=== PATIENT | female | born 2000 | race Caucasian/White ===

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

== ENCOUNTER 2020-02-24 12:44 | Emergency (ER) | payer MEDICAID, OTHER ==
[~2020-02-24] VITALS: Ht 162.6 cm; Wt 59.5 kg
[~2020-02-24 12:44] MED LIST changes: +PRENTAB9 PO
[2020-02-24 15:46] VITALS: BP 138/67
== END 2020-02-24 15:48 | disposition home or self-care (01) ==
LOC: M ED 12:44
DX: F53.0 Postpartum depression (principal); Z91.5 Personal history of self-harm; Z91.018 Allergy to other foods; Z91.040 Latex allergy status

== ENCOUNTER 2020-11-24 22:51 | Inpatient (IN) | payer OTHER ==
[~2020-11-24] VITALS: Ht 162.6 cm; Wt 48.7 kg
[~2020-11-24 22:51] MED LIST changes: -ESCI20TA PO; +ESCI20TA16 PO
--- OUTSIDE RECORDS SUMMARY | 2020-11-24 22:56 | CCD ---
Author Author [facility] Organization [facility] Address Unknown Phone Unavailable Care Team Providers Care Hogshead Weigher Name Role Phone Danita Stafford STAGE BUILDER Unavailable Unavailable LETTIERE, Kale LINDER Unavailable Unavailable LETTIERE, Kale LINDER Unavailable Unavailable LETTIERE, Kale LINDER Unavailable Unavailable LETTIERE, Kale LINDER Unavailable Unavailable LETTIERE, Kale LINDER Unavailable Unavailable LETTIERE, Kale LINDER Unavailable Unavailable LETTIERE, Kale LINDER Unavailable Unavailable LETTIERE, Kale LINDER Unavailable Unavailable LETTIERE, Kale LINDER Unavailable Unavailable LETTIERE, Kale LINDER Unavailable Unavailable LETTIERE, Kale LINDER Unavailable Unavailable LETTIERE, A CHARMAINE PA Unavailable Unavailable LETTIERE, A CHARMAINE PA Unavailable Unavailable LETTIERE, A CHARMAINE PA Unavailable Unavailable LETTIERE, A CHARMAINE PA Unavailable Unavailable LETTIERE, A CHARMAINE PA Unavailable Unavailable LETTIERE, A CHARMAINE PA Unavailable Unavailable LETTIERE, A CHARMAINE PA Unavailable Unavailable LETTIERE, A CHARMAINE PA Unavailable Unavailable LETTIERE, A CHARMAINE PA Unavailable Unavailable LETTIERE, A CHARMAINE PA Unavailable Unavailable LETTIERE, A CHARMAINE PA Unavailable Unavailable LETTIERE, A CHARMAINE PA Unavailable Unavailable LETTIERE, A CHARMAINE PA Unavailable Unavailable LETTIERE, A CHARMAINE PA Unavailable Unavailable LETTIERE, A CHARMAINE PA Unavailable Unavailable LETTIERE, A CHARMAINE PA Unavailable Unavailable LETTIERE, A CHARMAINE PA Unavailable Unavailable LETTIERE, A CHARMAINE PA Unavailable Unavailable Re-disclosure Warning The records that you are about to access may contain information from federally-assisted alcohol or drug abuse programs. If such information is present, then the following federally mandated warning applies: This information has been disclosed to you from records protected by federal confidentiality rules (42 CFR part 2). The federal rules prohibit you from making any further disclosure of this information unless further disclosure is expressly permitted by the written consent of the person to whom it pertains or as otherwise permitted by 42 CFR part 2. A general authorization for the release of medical or other information is NOT sufficient for this purpose. The Federal rules restrict any use of the information to criminally investigate or prosecute any alcohol or drug abuse patient.The records that you are about to access may contain highly sensitive health information, the redisclosure of which is protected by Article 27-F of the [facility] Public Health law. If you continue you may have access to information: Regarding HIV / AIDS; Provided by facilities licensed or operated by the [facility] Office of Mental Health; or Provided by the [facility] Office for People With Developmental Disabilities. If such information is present, then the following [facility] mandated warning applies: This information has been disclosed to you from confidential records which are protected by state law. State law prohibits you from making any further disclosure of this information without the specific written consent of the person to whom it pertains, or as otherwise permitted by law. Any unauthorized further disclosure in violation of state law may result in a fine or care home sentence or both. A general authorization for the release of medical or other information is NOT sufficient authorization for further disc losure. Family History Family Member Name Family Member Gender Family Member Status Date o f Status Description Data Source(s) Unknown Unknown Problem [facility] ([facility]) Encounters Encounter Providers Location Date Indications Data Source(s ) Outpatient Attender: CHARMAINE Kidd Andrea Deleon donato 07/25/2020 03:50:00 PM EDT [facility] ([facility]) Outpatient Attender: KRISTIAN Stafford STAGE BUILDER FP 03/21/2020 07:26:15 P M EDT [facility] Outpatient Attender: KRISTIAN PHILLIPSP FP 12/21/2019 09:01:01 P M EDT [facility] Insurance Providers Payer name Policy type / Coverage type Policy ID Covered green party ID Covered green party's relationship to gallo Policy Gallo Plan Information [facility] [id number] SP [id number] Managed Care [facility] Community Plan P [id number] S [id number] Medicaid S [id number] S [id number] [facility] [id number] SP [id number] UN COMMUNITY PLAN [facility] [id number] SP [id number] [facility] [id number] SP [id number] Managed Care - Community Plan [facility] P [id number] S [id number] Managed Care - Community Plan [facility] P [id number] S [id number] Medicaid S [id number] S [id number] [facility] Health Maintenance Organization (O) [id number] Self [id number] UN COMMUNITY PLAN [facility] [id number] SP [id number] [facility] Health Maintenance Organization (HMO) [id number] Self [id number] Managed Care - Community Plan [facility] P [id number] S [id number] [employer] [id number] SP [id number] [employer] O [id number] S [id number] [facility]CA[facility]) O [id number] S [id number] [facility] O [id number] S [id number] DK [id number] [id number] [id number] MEDICAID M [id number] Self [id number] [facility] I [id number] Self [id number] Managed Care - Community Plan [facility] P [id number] S [id number] Medicaid S [id number] S [id number] UNHC COMMUNITY PLAN [facility] [id number] SP [id number] D Managed Care [facility] P [id number] S [id number] Medicaid Dental S [id number] S [id number] Self Pay O [id number] O [id number] D Managed Care [facility] P UNAVAILABLE S UNAVAILABLE [employer] CHP O [id number] S [id number] D [facility] O [id number] S [id number] Vital Signs ID Date Data Source UNK Name Value Range Interpretation Code Description Data Source(s) Body mass index (BMI) [Ratio] 19.9 kg/m2 19.9 k g/m2 [facility] ([facility], [facility]) Body height 64 [in_i] 64 [in_i] [facility]) 5'4" Body weight 116.00 [lb_av] 116.00 [lb_av] MEDEN T ([facility], [facility]) Body temperature 97.9 [degF] 97.9 [degF] [facility], [facility]) Oxygen saturation in Arterial blood by Pulse oximetry 98 % 98 % [facility] ([facility], [facility]) Respiratory rate 14 /min 14 /min [facility] ( [facility], [facility]) Heart rate 82 /min 82 /min [facility] ([facility], [facility]) Diastolic blood pressure 76 mm[Hg] 76 mm[Hg] [facility], [facility]) Systolic blood pressure 117 mm[Hg] 117 mm[Hg] [facility], [facility])
[2020-11-24] MEDS ORDERED: WELLTAB38 PO (23:05)
[2020-11-24] MEDS: NS 1,000 ML IV SCH (23:59)
[2020-11-25] MEDS ORDERED: CHARCOAL ACTIVATED LIQUID 25 GM/120 ML BTL PO ONE (00:15)
[2020-11-25 00:29] LABS: BASO % 0.5 % (0.0-1.0); EOS # 0.3 10^3/uL (0.0-0.5); EOS % 3.9 % (0.0-3.0); HEMATOCRIT 44.4 % (36.0-47.0); HEMOGLOBIN 14.3 g/dl (12.0-15.5); LYMPH # 2.6 10^3/uL (1.5-5.0); LYMPH % 34.7 % (24.0-44.0); MEAN CORPUSCULAR HEMOGLOBIN 29.2 pg (27.0-33.0); MEAN CORPUSCULAR HGB CONC 32.2 g/dl (32.0-36.5); MEAN CORPUSCULAR VOLUME 90.8 fl (80.0-96.0); MONO # 0.6 10^3/uL (0.0-0.8); MONO % 7.5 % (2.0-8.0); NEUTROPHILS # 3.9 10^3/uL (1.5-8.5); NEUTROPHILS % 52.9 % (36.0-66.0); PLATELET COUNT, AUTOMATED 284 10^3/uL (150-450); RED BLOOD COUNT 4.89 10^6/uL (4.00-5.40); WHITE BLOOD COUNT 7.4 10^3/uL (4.0-10.0)
[2020-11-25 00:32] LABS: ACETAMINOPHEN LEVEL < 2.0 UG/ML (10.0-30.0); ALBUMIN 3.9 GM/DL (3.2-5.2); ALT/SGPT 17 U/L (12-78); AMPHETAMINES LEVEL URINE NEGATIVE (NEGATIVE); BARBITURATES URINE NEGATIVE (NEGATIVE); BENZODIAZEPINES URINE NEGATIVE (NEGATIVE); BILIRUBIN,DIRECT < 0.1 MG/DL (0.0-0.2); BILIRUBIN,TOTAL 0.2 MG/DL (0.2-1.0); BLOOD UREA NITROGEN 16 MG/DL (7-18); CALCIUM LEVEL 9.4 MG/DL (8.5-10.1); CANNABINOIDS URINE NEGATIVE (NEGATIVE); CARBON DIOXIDE LEVEL 28 MEQ/L (21-32); CHLORIDE LEVEL 105 MEQ/L (98-107); COCAINE METABOLITE URINE NEGATIVE (NEGATIVE); CPK CREATINE PHOSPHOKINASE 27 U/L (26-192); CREATININE FOR GFR 0.96 MG/DL (0.55-1.30); ETHYL ALCOHOL (ETHANOL) < 0.003 % (0.000-0.010); GLUCOSE, FASTING 112 MG/DL (70-100); METHADONE URINE NEGATIVE (NEGATIVE); OPIATES URINE NEGATIVE (NEGATIVE); PHENCYCLIDINE URINE NEGATIVE (NEGATIVE); POTASSIUM SERUM 4.6 MEQ/L (3.5-5.1); SALICYLATE LEVEL < 1.7 MG/DL (5.0-30.0); SODIUM LEVEL 140 MEQ/L (136-145); TOTAL PROTEIN 7.4 GM/DL (6.4-8.2)
[2020-11-25 00:43] LABS: HCG, SERUM QUALITATIVE NEGATIVE (NEGATIVE)
[2020-11-25 00:54] LABS: RSV AMPLIFICATION NEGATIVE (NEGATIVE)
--- OUTSIDE RECORDS SUMMARY | 2020-11-25 01:11 | CCD ---
Author Author [facility] Organization [facility] Address Unknown Phone Unavailable Care Team Providers Care Marketing Secretary Name Role Phone Danita Stafford Unavailable Unavailable LETTIERE, Kale LINDER Unavailable Unavailable [...] A CHARMAINE PA Unavailable Unavailable LETTIERE, A CHARMIANE PA Unavailable Unavailable LETTIERE, A CHARMAINE PA [...] is protected by Article 27-F of the [facility] Public Health law. If you continue you may have access to information: Regarding HIV / AIDS; Provided by facilities licensed or operated by the [facility] Office of Mental Health; or Provided by the [facility] Office for People With Developmental Disabilities. If such information is present, then the following [facility] mandated warning applies: This information has been [...] law may result in a fine or intermediate sentence or both. A general authorization for the release of medical or other information is NOT sufficient authorization for further disc losure. Family History Family Member Name Family Member Gender Family Member Status Date o f Status Description Data Source(s) Unknown Unknown Problem [facility] ([facility]) Encounters Encounter Providers Location Date Indications Data Source(s ) Outpatient Attender: CHARMAINE yepezy 07/25/2020 03:50:00 PM EDT [facility] ([facility]) Outpatient Attender: KRISTIAN Rivera TEST DRILLER FP 03/21/2020 07:26:15 P M EDT [facility] Outpatient Attender: KRISTIAN Rivera TEST DRILLER FP 12/21/2019 09:01:01 P M EDT [facility] Insurance Providers Payer name Policy type / Coverage type Policy ID Covered republican ID Covered republican's relationship to gallo Policy Gallo Plan Information [facility] [id number] SP [id number] Managed Care [facility] Community Plan P [id number] S [id number] Medicaid S [id number] S [id number] [facility] [id number] SP [id number] [facility] COMMUNITY PLAN [facility] [id number] SP [id number] [facility] [id number] SP [id number] Managed Care - Community Plan [facility] P [id number] S [id number] Managed Care - Community Plan [facility] P [id number] S [id number] Medicaid S [id number] S [id number] [facility]/Community [facility] Health Maintenance Organization ([facility]) [id number] Self [id number] [facility] COMMUNITY PLAN [facility] [id number] SP [id number] [facility] Health Maintenance Organization (HMO) [id number] Self [id number] Managed Care - Community Plan [facility] P [id number] S [id number] [employer] [id number] SP [id number] [employer] O [id number] S [id number] [facility]CAID) O [id number] S [id number] [facility] O [id number] S [id number] DK JEFFY [id number] MO2 [id number] MEDICAID M [id number] Self [id number] [facility] I [id number] Self [id number] Managed Care - Community Plan [facility] P [id number] S [id number] Medicaid S [id number] S [id number] UN COMMUNITY PLAN [facility] [id number] SP [id number] D Managed Care [facility] P [id number] S [id number] Medicaid Dental S [id number] S [id number] Self Pay O [id number] O [id number] D Managed Care [facility] P UNAVAILABLE S UNAVAILABLE [employer] CHP O [id number] S [id number] D [facility] O [id number] S [id number] Vital Signs ID Date Data Source UNK Name Value Range Interpretation Code Description Data Source(s) Body mass index (BMI) [Ratio] 19.9 kg/m2 19.9 k g/m2 [facility], [facility]) Body height 64 [in_i] 64 [in_i] [facility] ([facility], [facility]) 5'4" Body weight 116.00 [lb_av] 116.00 [lb_av] MEDEN T ([facility], [facility]) Body temperature 97.9 [degF] 97.9 [degF] [facility] ([facility], [facility]) Oxygen saturation in Arterial blood by Pulse oximetry 98 % 98 % [facility], [facility]) Respiratory rate 14 /min 14 /min [facility] ( [facility], [facility]) Heart rate 82 /min 82 /min [facility], [facility]) Diastolic blood pressure 76 mm[Hg] 76 mm[Hg] [facility], [facility]) Systolic blood pressure 117 mm[Hg] 117 mm[Hg] [facility] ([facility], [facility])
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
--- OUTSIDE RECORDS SUMMARY | 2020-11-25 04:33 | CCD ---
Author Author [facility] Address Unknown Phone Unavailable Care Team Providers Care Line Servicer Name Role Phone Danita Stafford Unavailable Unavailable [...] is protected by Article 27-F of the [facility] Public Health law. If you continue you may have access to information: Regarding HIV / AIDS; Provided by facilities licensed or operated by the [facility] Office of Mental Health; or Provided by the [facility] Office for People With Developmental Disabilities. If such information is present, then the following [facility] mandated warning applies: This information has been [...] law may result in a fine or mcc sentence or both. A general authorization for [...] CHARMAINE yepezy 07/25/2020 03:50:00 PM EDT [facility] ([facility]) Outpatient Attender: KRISTIAN Rivera RELOCATION DIRECTOR FP 03/21/2020 07:26:15 P M EDT [facility] Outpatient Attender: KRISTIAN Rivera RELOCATION DIRECTOR FP 12/21/2019 09:01:01 P M EDT [facility] Insurance Providers Payer name Policy type / Coverage type Policy ID Covered republican ID Covered republican's relationship to gallo Policy Gallo Plan Information [facility] [id number] SP [id number] Managed Care [facility] Community Plan P [id number] S [id number] Medicaid S [id number] S [id number] [facility] [id number] SP [id number] [facility] COMMUNITY PLAN [facility] [id number] SP [id number] [facility] [id number] SP [id number] Managed Care - Community Plan [facility] P [id number] S [id number] Managed Care - Community Plan [facility] P [id number] S [id number] Medicaid S [id number] S [id number] [facility] Health Maintenance Organization ([facility] [id number] Self [id number] [facility] COMMUNITY PLAN [facility] [id number] SP [id number] [facility] Health Maintenance Organization (HMO) [id number] Self [id number] Managed Care - Community Plan [facility] P [id number] S [id number] [employer] [id number] SP [id number] [employer] O [id number] S [id number] [facility]) O [id number] S [id number] [facility] O [id number] S [id number] JEFFY [id number] [id number] MEDICAID M [id number] Self [id number] [facility] I [id number] Self [id number] Managed Care - Community Plan [facility] P [id number] S [id number] Medicaid S [id number] S [id number] UN COMMUNITY PLAN [facility] [id number] SP [id number] D Managed Care [facility] P [id number] S [id number] Medicaid Dental S [id number] S [id number] Self Pay O [id number] O [id number] D Managed Care [facility] P UNAVAILABLE S UNAVAILABLE [employer] CHP O [id number] S [id number] D [facility] O [id number] S [id number] Vital Signs ID Date Data Source UNK Name Value Range Interpretation Code Description Data Source(s) Body mass index (BMI) [Ratio] 19.9 kg/m2 19.9 k g/m2 [facility] ([facility], [facility]) Body height 64 [in_i] 64 [in_i] [facility] ([facility], [facility]) 5'4" Body weight 116.00 [lb_av] 116.00 [lb_av] [facility] ([facility], [facility]) Body temperature 97.9 [degF] 97.9 [degF] [facility] ([facility], [facility]) Oxygen saturation in Arterial blood by Pulse oximetry 98 % 98 % [facility] ([facility], [facility]) Respiratory rate 14 /min 14 /min [facility] ( [facility], [facility]) Heart rate 82 /min 82 /min [facility] ([facility], [facility]) Diastolic blood pressure 76 mm[Hg] 76 mm[Hg] [facility] ([facility], [facility]) Systolic blood pressure 117 mm[Hg] 117 mm[Hg] [facility] ([facility], [facility])
--- NOTE | 2020-11-25 05:21 | ECGEPIP ---
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
[2020-11-25] MEDS ORDERED: LORazepam 2 MG/ML VIAL As Ordered ONE (07:28)
[2020-11-25 07:41] LABS: HEMATOCRIT 46.2 % (36.0-47.0); HEMOGLOBIN 14.2 g/dl (12.0-15.5); MEAN CORPUSCULAR HEMOGLOBIN 28.9 pg (27.0-33.0); MEAN CORPUSCULAR HGB CONC 30.7 g/dl (32.0-36.5); MEAN CORPUSCULAR VOLUME 94.1 fl (80.0-96.0); PLATELET COUNT, AUTOMATED 323 10^3/uL (150-450); RED BLOOD COUNT 4.91 10^6/uL (4.00-5.40); WHITE BLOOD COUNT 11.6 10^3/uL (4.0-10.0)
--- NOTE | 2020-11-25 07:42 | IPNPDOC ---
Subjective Date Seen The patient was seen on 11/25/20. Subjective Chief Complaint/HPI awake after seizure, confused , post ictal . Objective Physical Examination General Exam: Positive: Alert, Mild Distress, Other (confused, post ictal. ) Eye Exam: Positive: PERRLA, Conjunctiva & lids normal, EOMI; Negative: Sclera icteric Neck Exam: Positive: Supple; Negative: JVD, thyromegaly Chest Exam: Positive: Clear to auscultation; Negative: Rales, Rhonchi, Wheezing Heart Exam: Positive: Tachycardic, Regular Rhythm, Normal S1, Normal S2; Negative: Murmurs, Rubs Abdomen Exam: Positive: Normal bowel sounds, Soft; Negative: Tenderness Extremity Exam: Negative: Clubbing, Cyanosis, Edema Assessment /Plan Assessment Bupropion overdose Patient had a generalized tonic clonic seizure. Seizure lasted about 1 min and 30 secs. SHe became awake after the seizure immediately was was postictal. Was given 2 mg of IV ativan. She was tachy to 155, sinus in rhythm. Poison control was called to monitor on Tele, repeat EKG to QRS. If greater> 120 to called back for further recommendation. Benzos prn. Plan/VTE VTE Prophylaxis Ordered?: Yes VS, I&O, 24H, Fishbone Vital Signs/I&O Vital Signs Date Time Temp Pulse Resp B/P (MAP) Pulse Ox O2 Delivery O2 Flow Rate FiO2 11/25/20 06:35 108/64 (79) 11/25/20 06:22 133 18 96 Room Air 11/24/20 22:52 98.0 Laboratory Data 24H LABS Laboratory Tests 2 11/24/20 23:49: Immature Granulocyte % (Auto) 0.5, Neutrophils (%) (Auto) 52.9, Lymphocytes (%) (Auto) 34.7, Monocytes (%) (Auto) 7.5H, Eosinophils (%) (Auto) 3.9H, Basophils (%) (Auto) 0.5, Neutrophils # (Auto) 3.9, Lymphocytes # (Auto) 2.6, Monocytes # (Auto) 0.6, Eosinophils # (Auto) 0.3, Basophils # (Auto) 0.0, Nucleated Red Blood Cells % (auto) 0.0, Anion Gap 7L, Calcium Level 9.4, Total Bilirubin 0.2, Direct Bilirubin < 0.1, Aspartate Amino Transf (AST/SGOT) 12, Alanine Aminotransferase (ALT/SGPT) 17, Alkaline Phosphatase 98, Total Creatine Kinase 27, Total Protein 7.4, Albumin 3.9, Albumin/Globulin Ratio 1.1L, Thyroid Stimulating Hormone (TSH) 5.980H, Human Chorionic Gonadotropin, Qual NEGATIVE, Salicylates Level < 1.7L, Urine Opiates Screen NEGATIVE, Urine Methadone Screen NEGATIVE, Acetaminophen Level < 2.0L, Urine Barbiturates Screen NEGATIVE, Urine Phencyclidine Screen NEGATIVE, Urine Amphetamines Screen NEGATIVE, Urine Benzodiazepines Screen NEGATIVE, Urine Cocaine Metabolite Screen NEGATIVE, Urine Cannabinoids Screen NEGATIVE, Ethyl Alcohol Level < 0.003 11/24/20 23:50: Coronavirus (COVID-19)(PCR) NEGATIVE, Influenza Type A (RT-PCR) NEGATIVE, Influenza Type B (RT-PCR) NEGATIVE, Respiratory Syncytial Virus (PCR) NEGATIVE 11/24/20 23:59: Bedside Glucose (Misc Panel) 98 11/25/20 07:32: CBC/BMP Laboratory Tests 11/24/20 23:49 DIONE DIETRICH MD Nov 25, 2020 07:42
[2020-11-25 08:25] LABS: BLOOD UREA NITROGEN 9 MG/DL (7-18); CALCIUM LEVEL 8.7 MG/DL (8.5-10.1); CARBON DIOXIDE LEVEL 14 MEQ/L (21-32); CHLORIDE LEVEL 111 MEQ/L (98-107); CREATININE FOR GFR 1.06 MG/DL (0.55-1.30); FREE T3 2.8 PG/ML (2.9-4.5); GLUCOSE, FASTING 142 MG/DL (70-100); MAGNESIUM LEVEL 1.9 MG/DL (1.8-2.4); POTASSIUM SERUM 3.4 MEQ/L (3.5-5.1); SODIUM LEVEL 142 MEQ/L (136-145)
[2020-11-25] MEDS ORDERED: ONDANSETRON 4MG/2ML VIAL IV PRN (09:30)
[2020-11-25] MEDS ORDERED: LORazepam 2 MG/ML VIAL IV PRN (09:30)
[2020-11-25] MEDS: NS 1,000 ML IV SCH (10:20)
--- NOTE | 2020-11-25 11:14 | ECGEPIP ---
[facility] Test Date: 2020-11-25 Pat Name: ANA JEROME Department: Room: 01-03 Gender: Female Jerker: kristen WHITEHEADB: 2000 Requested By: RATNA Baer Order Number: [id number] Reading MD: Lavon Pruitt Measurements Intervals [place] Rate: 136 P: -6 ND: 134 QRS: -18 QRSD: 94 T: 9 QT: 325 QTc: 489 Interpretive Statements SINUS TACHYCARDIA NONSPECIFIC ST & T-WAVE ABNORMALITY Prolonged QTc interval Rate increase and lateral changes new from tracing done 11-24-20 Clinical correlation required Electronically Signed on 11-25-2020 11:13:55 EST by Lavon Pruitt
--- NOTE | 2020-11-25 11:16 | ECGEPIP ---
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
[2020-11-25] MEDS: ENOXAPARIN 30MG/0.3ML SYRINGE (J1650 PER 10MG) SC SCH (13:48)
[2020-11-25 14:30] VITALS: BP 98/59
[2020-11-25 16:00] VITALS: BP 129/60
[2020-11-25 20:00] VITALS: BP 107/57
[2020-11-26] VITALS: BP 101/55
[2020-11-26 04:00] VITALS: BP 97/50
[2020-11-26 05:25] LABS: HEMATOCRIT 38.7 % (36.0-47.0); MEAN CORPUSCULAR HGB CONC 31.5 g/dl (32.0-36.5); MEAN CORPUSCULAR VOLUME 92.1 fl (80.0-96.0); WHITE BLOOD COUNT 7.7 10^3/uL (4.0-10.0)
[2020-11-26 05:35] LABS: HEMOGLOBIN 12.2 g/dl (12.0-15.5); PLATELET COUNT, AUTOMATED 211 10^3/uL (150-450)
[2020-11-26 05:41] LABS: BLOOD UREA NITROGEN 9 MG/DL (7-18); CALCIUM LEVEL 8.6 MG/DL (8.5-10.1); CARBON DIOXIDE LEVEL 24 MEQ/L (21-32); CHLORIDE LEVEL 110 MEQ/L (98-107); CREATININE FOR GFR 0.71 MG/DL (0.55-1.30); GLUCOSE, FASTING 89 MG/DL (70-100); POTASSIUM SERUM 3.9 MEQ/L (3.5-5.1); SODIUM LEVEL 143 MEQ/L (136-145)
[2020-11-26 08:00] VITALS: BP 119/57
[2020-11-26] MEDS: ENOXAPARIN 30MG/0.3ML SYRINGE (J1650 PER 10MG) SC SCH (09:00)
--- NOTE | 2020-11-26 11:19 | IPNPDOC ---
Subjective Date Seen The patient was seen on 11/26/20. Subjective Chief Complaint/HPI No complaints. EKG no prolongation of QRS, no further seizures. Awaiting to be seen by psychiatry. Objective Physical Examination General Exam: Positive: Alert, Cooperative, No Acute Distress Eye Exam: Positive: PERRLA, Conjunctiva & lids normal, EOMI; Negative: Sclera icteric ENT Exam: Positive: Atraumatic, Mucous membr. moist/pink, Pharynx Normal Neck Exam: Positive: Supple; Negative: JVD, thyromegaly Chest Exam: Positive: Clear to auscultation; Negative: Rales, Rhonchi, Wheezing Heart Exam: Positive: Rate Normal, Regular Rhythm, Normal S1, Normal S2; Negative: Murmurs, Rubs Abdomen Exam: Positive: Normal bowel sounds, Soft; Negative: Tenderness Extremity Exam: Negative: Clubbing, Cyanosis, Edema Neuro Exam: Positive: Normal Speech, Strength at 5/5 X4 ext, Normal Tone Psych Exam: Positive: Memory Intact, Oriented x 3 Assessment /Plan Assessment Mrs. Gorman is a 20 year old female with anxiety, depression, and suicide attempt in December 2016 ([facility]) who presents with bupropion overdose. She recently gave a year ago, and she has a lot of stress ans was depressed. About a month ago, she was started on bupropion. She overdosed on 10 to 15 pills of 150mg bupropion. Had charcoal int eh ED. She had a seizure af ter admission. On cardiac arrhythmias. Suicidal attempt by Overdose Has prior h/o suicidal attempt in 2017 One on one observation. Now medically cleared will consult Psychiatry. Bupropion overdose Had a tonic clonic seizure after the overdose, No QRS changes. As per poison control benzos prn given. Obs 24 hours No medically cleared. Seizure due to bupropion overdose resolved. Does not need antiepileptics. Subclinical hypothyroidism Vs sick Euthyroid syndrome will not start on any medications at this time follow up with PMD. Plan/VTE VTE Prophylaxis Ordered?: Yes VS, I&O, 24H, Tom Vital Signs/I&O Vital Signs Date Time Temp Pulse Resp B/P (MAP) Pulse Ox O2 Delivery O2 Flow Rate FiO2 11/26/20 08:00 98.4 81 18 119/57 (77) 98 Room Air I&O- Last 24 Hours up to 6 AM 11/26/20 06:00 Intake Total 1775 ml Output Total 400 ml Balance 1375 ml Laboratory Data 24H LABS Laboratory Tests 2 11/26/20 04:33: Nucleated Red Blood Cells % (auto) 0.0, Anion Gap 9, Calcium Level 8.6 CBC/BMP Laboratory Tests 11/26/20 04:33 DIONE DIETRICH MD Nov 26, 2020 11:19
[2020-11-26 12:00] VITALS: BP 109/55
--- NOTE | 2020-11-26 12:53 | ECGEPIP ---
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
--- NOTE | 2020-11-26 12:57 | ECGEPIP ---
[facility] Test Date: 2020-11-26 Pat Name: ANA JEROME Department: Room: [place] [address] Gender: Female Information Lead: muna : 2000 Requested By: DIONE DIETRICH Order Number: [id number] Reading MD: Lavon Pruitt Measurements Intervals [place] Rate: 81 P: 65 HI: 122 QRS: 83 QRSD: 86 T: 53 QT: 392 QTc: 455 Interpretive Statements Normal sinus rhythm with sinus arrhythmia Similar to tracing done 11-25-20 Electronically Signed on 11-26-2020 12:57:03 EST by Lavon Pruitt
[2020-11-26 14:00] VITALS: BP 99/58
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
[2020-11-26 21:12] VITALS: BP 105/70
[2020-11-27 06:00] VITALS: BP 103/67
[2020-11-27] MEDS: ENOXAPARIN 30MG/0.3ML SYRINGE (J1650 PER 10MG) SC SCH (08:39)
--- NOTE | 2020-11-27 09:40 | IPNPDOC ---
Subjective Date Seen The patient was seen on 11/27/20. Subjective Chief Complaint/HPI No complaints this morning. Objective Physical Examination General Exam: Positive: Alert, Cooperative, No Acute Distress Eye Exam: Positive: PERRLA, Conjunctiva & lids normal, EOMI; Negative: Sclera icteric ENT Exam: Positive: Atraumatic, Mucous membr. moist/pink, Pharynx Normal Neck Exam: Positive: Supple; Negative: JVD, thyromegaly Chest Exam: Positive: Clear to auscultation; Negative: Rales, Rhonchi, Wheezing Heart Exam: Positive: Rate Normal, Regular Rhythm, Normal S1, Normal S2; Negative: Murmurs, Rubs Abdomen Exam: Positive: Normal bowel sounds, Soft; Negative: Tenderness Extremity Exam: Negative: Clubbing, Cyanosis, Edema Neuro Exam: Positive: Normal Speech, Strength at 5/5 X4 ext, Normal Tone Psych Exam: Positive: Memory Intact, Oriented x 3 Assessment /Plan Assessment Mrs. Gorman is a 20 year old female with anxiety, depression, and suicide attempt in December 2016 ([facility]) who presents with bupropion overdose. She recently gave a year ago, and she has a lot of stress ans was depressed. About a month ago, she was started on bupropion. She overdosed on 10 to 15 pills of 150mg bupropion. Had charcoal int ED. She had a seizure after admission. On cardiac arrhythmias. Suicidal attempt by Overdose Has prior h/o suicidal attempt in 2017 One on one observation. Now medically cleared Seen by Psychiatry, Needs inpatient psychiatry Bupropion overdose Had a tonic clonic seizure after the overdose, No QRS changes. As per poison control benzos prn given. [facility] Seizure due to bupropion overdose resolved. Does not need antiepileptics. Subclinical hypothyroidism Vs sick Euthyroid syndrome will not start on any medications at this time follow up with PMD. Dispo : [facility] available. Plan/VTE VTE Prophylaxis Ordered?: Yes VS, I&O, 24H, Fishbone Vital Signs/I&O Vital Signs Date Time Temp Pulse Resp B/P (MAP) Pulse Ox O2 Delivery O2 Flow Rate FiO2 11/27/20 06:00 98.1 75 17 103/67 (79) 98 Room Air I&O- Last 24 Hours up to 6 AM 11/27/20 05:59 Intake Total 1220 ml Output Total 0 ml Balance 1220 ml DIONE DIETRICH MD Nov 27, 2020 09:40
[2020-11-27 14:00] VITALS: BP 97/61
[2020-11-27 22:00] VITALS: BP 98/67
[2020-11-28 06:00] VITALS: BP 91/59
[2020-11-28] MEDS: ENOXAPARIN 30MG/0.3ML SYRINGE (J1650 PER 10MG) SC SCH (07:54)
[2020-11-28 13:42] VITALS: BP 116/76
--- NOTE | 2020-11-28 13:52 | DS.PDOC ---
Discharge Summary General Date of Admission Nov 27, 2020 at 09:20 Date of Discharge 11/28/2020 Attending Physician: JOSE NOLAN MD Discharge Summary PROCEDURES PERFORMED DURING STAY: None. ADMITTING DIAGNOSES: 1. Suicidal ideation, drug overdose. DISCHARGE DIAGNOSES: 1. Suicidal ideation, drug overdose. COMPLICATIONS/CHIEF COMPLAINT: Intentional Drug Overdose,Post Depression. HISTORY OF PRESENT ILLNESS: 20-year-old female with past medical history of depression, was admitted after overdosing on Wellbutrin. She reportedly got in and arguing with her and overreacted by taking 10 pills of Wellbutrin. She quickly realized her mistake and presented to the hospital. She reports long-standing depression with suicidal ideation. She reportedly had a seizure while in the ER, no further episodes since. She has been comfortable overnight, at her baseline health at this time, without any complaints. She denies any nausea, vomiting, shortness of breath, chest pain, diarrhea, constipation or abdominal pain. She is agreeable with transfer to inpatient mental health unit at this time. HOSPITAL COURSE: As above. DISCHARGE MEDICATIONS: Please see below. ALLERGIES: Please see below. PHYSICAL EXAMINATION: VITAL SIGNS: Please see below. GENERAL: No distress HEENT: Normocephalic, atraumatic, moist mucous membranes NECK: Supple CARDIOVASCULAR EXAMINATION: S1, S2, no murmurs RESPIRATORY EXAMINATION: Clear to auscultation, no wheezing ABDOMINAL EXAMINATION: Soft, nontender, nondistended, positive bowel sounds EXTREMITIES: Range of motion intact SKIN: No rash NEUROLOGICAL EXAMINATION: Alert and oriented 3, no focal deficits PSYCHIATRIC EXAMINATION: Calm and cooperative LABORATORY DATA: Please see below PROGNOSIS: Fair ACTIVITY: As tolerated. DIET: Regular DISCHARGE PLAN: Follow-up with PCP after discharge from inpatient mental health unit DISPOSITION: Inpatient mental health unit. DISCHARGE INSTRUCTIONS: 1. As above. DISCHARGE CONDITION: Stable. TIME SPENT ON DISCHARGE: Greater than 15 minutes. Vital Signs/I&Os Vital Signs Date Time Temp Pulse Resp B/P (MAP) Pulse Ox O2 Delivery O2 Flow Rate FiO2 11/28/20 06:00 97.9 85 18 91/59 (70) 97 Room Air I&O- Last 24 Hours up to 6 AM 11/28/20 06:00 Intake Total 840 ml Output Total 0 ml Balance 840 ml Discharge Medications No Active Prescriptions or Reported Meds Allergies Coded Allergies: Carrot (Unverified Allergy, Severe, ANAPHYLAXIS, 07/13/17) FRUIT (Verified Allergy, Severe, ALL RAW FRUIT, 07/13/17) Nut Tree (Unverified Allergy, Unknown, ANAPHYLAXIS, 07/13/17) latex (Verified Allergy, Unknown, 02/12/19) soy (Verified Allergy, Unknown, 02/12/19) JOSE NOLAN MD Nov 28, 2020 13:52
== END 2020-11-28 15:40 | DRG 271 ==
LOC: M ED 22:51 → M ED INP 22:52 → M PCU 11-25 14:16 → M MS5PR 11-26 13:00 → OBSVTOIN 11-27 09:20
PROVIDERS: ADMIT Internal Medicine; ATTEND Internal Medicine
DX: T43.202A Poisoning by unspecified antidepressants, intentional self-harm, initial encounter (principal); F53.0 Postpartum depression; Z91.040 Latex allergy status; Z91.018 Allergy to other foods; Z91.010 Allergy to peanuts; F41.9 Anxiety disorder, unspecified; G40.409 Other generalized epilepsy and epileptic syndromes, not intractable, without status epilepticus

== ENCOUNTER 2020-11-28 14:07 | Inpatient (IN) | payer OTHER ==
[~2020-11-28] VITALS: Ht 162.6 cm; Wt 50.0 kg
[~2020-11-28 14:07] MED LIST changes: +WELLTAB38 PO
[2020-11-28] MEDS ORDERED: MOM 30ML SUSPENSION UDC PO PRN (14:15)
[2020-11-28] MEDS ORDERED: MAALOX 30 ML SUSP *UDC PO PRN (14:15)
[2020-11-28] MEDS ORDERED: OLANZapine 5 MG TAB PO PRN (14:15)
[2020-11-28] MEDS ORDERED: traZODone 50 MG TAB PO PRN (14:15)
[2020-11-28] MEDS ORDERED: ACETAMINOPHEN TAB 650MG DOSE (2X325MG) PO PRN (14:15)
[2020-11-28] MEDS ORDERED: OLANZapine ORAL DISINTEGRATING TAB 5MG PO PRN (14:45)
--- OUTSIDE RECORDS SUMMARY | 2020-11-28 15:53 | CCD | Continuity of Care Document ---
Author Author [facility]i [facility] Organization Unknown Address [address] [place] [address] Phone [phone] Problems Description No Information Available Social History Type Date Description Comments Sex Unknown Tobacco Use Start: Unknown End: Unknown Quit ETOH Use Never used alcohol Tobacco Use Start: Unknown End: Patient is a former smoker Recreational Drug Use Denies Drug Use Smoking Status Reviewed: 09/11/20 Patient is a former smoker Exercise Type/Frequency Does not exercise Tattoo/Piercing Tattoo Tattoo/Piercing Pierced ears Sun Exposure Moderate amount of sun exposure Sun Exposure Has experienced blistering from sunburns Sun Exposure History of sunburns prior to age 18 Sun Exposure Uses greater than 30 SPF Sun Exposure Does not use tanning beds Seat Belt/Car Seat Always uses seat belt Smoke Alarms Yes Smoke Alarms Carbon Monoxide Detector: Yes Allergies, Adverse Reactions, Alerts Active Allergies Reaction Severity Comments Date Raw Fruit/Vegatables Difficulty breathing, Diffic ulty swallowing, Facial swelling, Hives, Palpitations, Tongue swelling 09/11/2020 Environmental 09/11/2020 Latex Hives 09/11/2020 Medications Description No Active Medications Immunizations CPT Code Status Date Vaccine Lot # [id number] Given 09/11/2020 Influenza Virus Vaccine, Quadrivalent,age 3 and up,multidose vial [id number] Vital Signs Date Vital Result Comment 09/11/2020 1:53pm BP Systolic 101 mmHg BP Diastolic 76 mmHg Heart Rate 82 /min Body Temperature 96.6 F Respiratory Rate 18 /min Height 64 inches 5'4" Weight 110.12 lb O2 % BldC Oximetry 97 % Peak Expiratory Flow Rate 420 Estimated Peak Flow Rate Last Menstrual Period 4776006 Stacy Body Weight 120 lb BMI (Body Mass Index) 18.9 kg/m2 Height Percentile 45 % Weight Percentile 15th Results Description No Information Available Procedures Description No Information Available Medical Devices Description No Information Available Encounters Type Date Location Provider Dx Diagnosis Office Visit 09/11/2020 1:45p Main Office Lexie Mckenzie FNP R53.8 3 Other fatigue Z00.00 Encntr for general adult med ical exam w/o abnormal findings Z23 Encounter for immunization Assessments Date Code Description Provider 09/11/2020 R53.83 Other fatigue Lexie Mckenzie FNP 09/11/2020 Z00.00 Encounter for genera l adult medical examination without abnormal findings Lexie Mckenzie FNP 09/11/2020 Z23 Encounter for immunization Lexie Rodriguez FNP Plan of Treatment 09/11/2020 - Lexie Mckenzie FNP* R53.83 Other fatigue* Comments:* Likely related to having an to care for but will get labs to evaluate other causes * Follow up:* annually * Z00.00 Encounter for general adult medical examination without abnormal findings* Comments:* Health maintenance up to date. Overall doing well. GURDEEP/PHQ 9/CAGE questionnaire reviewed. Discussed healthy lifestyle choices. PHQ-9 results and concerns addressed with patient. * Z23 Encounter for immunization * All * New Medication:* No Active Medications - Functional Status Functional Condition Comment Date Status .None Active Independent with all ADL's Activ e Independent with all IADL's Acti ve Mental Status Mental Condition Comment Date Status None Active Referrals Description No Information Available
--- OUTSIDE RECORDS SUMMARY | 2020-11-28 15:53 | CCD ---
Author Author [facility] Address Unknown Phone Unavailable Care Team Providers Care Construction Driver Name Role Phone Pleskach, Lexie COMMUNITY DEVELOPMENT OFFICER Unavailable Unavailable Pleskach, Lexie COMMUNITY DEVELOPMENT OFFICER Unavailable Unavailable Pleskach, Lexie COMMUNITY DEVELOPMENT OFFICER Unavailable Unavailable Pleskach, Lexie COMMUNITY DEVELOPMENT OFFICER Unavailable Unavailable Pleskach, Lexie COMMUNITY DEVELOPMENT OFFICER Unavailable Unavailable Pleskach, Lexie COMMUNITY DEVELOPMENT OFFICER Unavailable Unavailable Pleskach, Lexie COMMUNITY DEVELOPMENT OFFICER Unavailable Unavailable Pleskach, Lexie COMMUNITY DEVELOPMENT OFFICER Unavailable Unavailable Pleskach, Lexie COMMUNITY DEVELOPMENT OFFICER Unavailable Unavailable Pleskach, Lexie COMMUNITY DEVELOPMENT OFFICER Unavailable Unavailable Pleskach, Lexie COMMUNITY DEVELOPMENT OFFICER Unavailable Unavailable Pleskach, Lexie COMMUNITY DEVELOPMENT OFFICER Unavailable Unavailable Pleskach, Lexie COMMUNITY DEVELOPMENT OFFICER Unavailable Unavailable Pleskach, Lexie COMMUNITY DEVELOPMENT OFFICER Unavailable Unavailable Pleskach, Lexie COMMUNITY DEVELOPMENT OFFICER Unavailable Unavailable Pleskach, Lexie COMMUNITY DEVELOPMENT OFFICER Unavailable Unavailable Pleskach, Lexie COMMUNITY DEVELOPMENT OFFICER Unavailable Unavailable Pleskach, Lexie COMMUNITY DEVELOPMENT OFFICER Unavailable Unavailable Pleskach, Lexie COMMUNITY DEVELOPMENT OFFICER Unavailable Unavailable Pleskach, Lexie COMMUNITY DEVELOPMENT OFFICER Unavailable Unavailable Pleskach, Lexie COMMUNITY DEVELOPMENT OFFICER Unavailable Unavailable Pleskach, Lexie COMMUNITY DEVELOPMENT OFFICER Unavailable Unavailable Pleskach, Lexie COMMUNITY DEVELOPMENT OFFICER Unavailable Unavailable Pleskach, Lexie COMMUNITY DEVELOPMENT OFFICER Unavailable Unavailable Pleskach, Lexie COMMUNITY DEVELOPMENT OFFICER Unavailable Unavailable Pleskach, Lexie COMMUNITY DEVELOPMENT OFFICER Unavailable Unavailable Pleskach, Lexie COMMUNITY DEVELOPMENT OFFICER Unavailable Unavailable Pleskach, Lexie COMMUNITY DEVELOPMENT OFFICER Unavailable Unavailable Pleskach, Lexie COMMUNITY DEVELOPMENT OFFICER Unavailable Unavailable Pleskach, Lexie COMMUNITY DEVELOPMENT OFFICER Unavailable Unavailable Rivera, Danita COMMUNITY DEVELOPMENT OFFICER COMMUNITY DEVELOPMENT OFFICER Unavailable Unavailable LETTIERE, A CHARMAINE PA Unavailable [...] is protected by Article 27-F of the [facility] Public Health law. If you continue you may have access to information: Regarding HIV / AIDS; Provided by facilities licensed or operated by the [facility] Office of Mental Health; or Provided by the [facility] Office for People With Developmental Disabilities. If such information is present, then the following [facility] mandated warning applies: This information has [...] Description Data Source(s) Unknown Unknown Problem [facility] ([facility], [facility]) Encounters Encounter Providers Location Date Indications Data Source(s ) Outpatient Attender: Lexie Strange [facility] Main Office 09/11/2020 1 2:45:00 PM EST [facility] ([facility] Outpatient Attender: CHARMAINE sewell 07/25/2020 03:50:00 PM EDT [facility] ([facility]) [facility]: [facility] 03/21/2020 07:26:15 P M EDT [facility]: [facility] 12/21/2019 09:01:01 P M EDT [facility] Immunizations Vaccine Date Status Description Data Source(s) New in 2012. IIV4 09/11/2020 01:00:00 PM EST completed [facility] ([facility] Insurance Providers Payer name Policy type / Coverage type Policy ID Covered alliance party ID Covered alliance party's relationship to live Policy Live Plan Information [facility] [id number] SP [id number] [facility] [id number] SP [id number] Managed Care - [facility] Community Plan P [id number] S [id number] Medicaid S [id number] S [id number] [facility] LUCIO [id number] SP [id number] UN COMMUNITY PLAN MCDO [id number] SP [id number] [facility] [id number] SP [id number] Managed Care - Community Plan [facility] P [id number] S [id number] Managed Care - Community Plan [facility] P [id number] S [id number] Medicaid S [id number] S [id number] [facility] (HMO) [id number] Self [id number] [employer] COMMUNITY PLAN MCDO [id number] SP [id number] [facility] [employer] (HMO) [id number] Self [id number] Managed Care - Community Plan [facility] P [id number] S [id number] [employer] [id number] SP [id number] [employer] O [id number] S [id number] [facility](MCAID) O [id number] S [id number] [facility] O [id number] S [id number] JEFFY [id number] [id number] MEDICAID M [id number] Self [id number] UHC I [id number] Self [id number] Managed Care - Community Plan [facility] P [id number] S [id number] Medicaid S [id number] S [id number] [employer] COMMUNITY PLAN MCDHMO [id number] SP [id number] D Managed Care [facility] P [id number] S [id number] Medicaid Dental S [id number] S [id number] Self Pay O [id number] O [id number] D Managed Care [facility] P UNAVAILABLE S UNAVAILABLE [employer] CHP O [id number] S [id number] D [employer] O [id number] S [id number] Results ID Date Data Source [id number] 11/24/2020 11:50:00 PM EST [facility] Name Value Range Interpretation Code Description Data Mamie rce(s) Supporting Document(s) SARS coronavirus 2 RNA [Presence] in Res piratory specimen by JAIME with probe detection NEGATIVE [facility] This lab was ordered by [facility] a nd reported by [facility]. Procedure Social History Code Duration Value Status Description Data Source(s ) Smoking 09/11/2020 12:00:00 AM EST Patient is a former smoker completed Patient is a former smoker [facility] ([facility] Vital Signs ID Date Data Source UNK Name Value Range Interpretation Code Description Data Source(s) Systolic blood pressure 101 mm[Hg] 101 mm[Hg] M [facility] ([facility] Diastolic blood pressure 76 mm[Hg] 76 mm[Hg] [facility] ([facility] Heart rate 82 /min 82 /min [facility] ([facility] Body temperature 96.6 [degF] 96.6 [degF] [facility] ([facility] Respiratory rate 18 /min 18 /min [facility] ( [facility] Body height 64 [in_i] 64 [in_i] [facility] ([facility] 5'4" Body weight 110.12 [lb_av] 110.12 [lb_av] [facility] T ([facility] Oxygen saturation in Arterial blood by Pulse oximetry 97 % 97 % [facility] ([facility] [place] body weight 120 [lb_av] 120 [lb_av] [facility] T ([facility] Body mass index (BMI) [Ratio] 18.9 kg/m2 18.9 k g/m2 [facility] ([facility] Body height [Percentile] 45 % 45 % [facility] ([facility] Body mass index (BMI) [Ratio] 19.9 kg/m2 19.9 k g/m2 [facility] ([facility], [facility]) Body height 64 [in_i] 64 [in_i] [facility] ([facility]) 5'4" Body weight 116.00 [lb_av] 116.00 [lb_av] [facility] T ([facility], [facility]) Body temperature 97.9 [degF] 97.9 [degF] [facility] ([facility], [facility]) Oxygen saturation in Arterial blood by Pulse oximetry 98 % 98 % [facility] ([facility]) Respiratory rate 14 /min 14 /min [facility] ( [facility]) Heart rate 82 /min 82 /min [facility] ([facility], [facility]) Diastolic blood pressure 76 mm[Hg] 76 mm[Hg] [facility] ([facility]) Systolic blood pressure 117 mm[Hg] 117 mm[Hg] [facility] ([facility], [facility])
--- OUTSIDE RECORDS SUMMARY | 2020-11-28 15:53 | CCD | Continuity of Care Document ---
Author Author Kathi [facility] Organization Unknown Address [address] [place] [address] Phone [phone] Problems Description No Information Available Social History [...] CPT Code Status Date Vaccine Lot # [id number] Given 09/11/2020 Influenza Virus Vaccine, Quadrivalent,age 3 and up,multidose vial [id number] Vital Signs Date Vital Result Comment 09/11/2020 1:53pm BP Systolic 101 mmHg BP Diastolic 76 mmHg Heart Rate 82 /min Body Temperature 96.6 F Respiratory Rate 18 /min Height 64 inches 5'4" Weight 110.12 lb O2 % BldC Oximetry 97 % Peak Expiratory Flow Rate 420 Estimated Peak Flow Rate Last Menstrual Period [id number] [place] Body Weight 120 lb BMI (Body Mass Index) 18.9 kg/m2 Height Percentile 45 % Weight Percentile 15th Results Description No Information Available Procedures Description No Information Available Medical Devices Description No Information Available Encounters Description No Information Available Assessments Date Code Description Provider 09/11/2020 R53.83 Other fatigue Lexie Mckenzie FNP Plan of Treatment 09/11/2020 - Lexie Mckenzie FNP* R53.83 Other fatigue* New Labs:* CBC With Differential, Scheduled: 09/11/20 * Comprehensive Metabolic Profil, Scheduled: 09/11/20 * Total Iron Binding Capacit, Scheduled: 09/11/20 * TSH And T4 Free (Rafael), Scheduled: 09/11/20 * Vitamin D 25-Hydroxy, Scheduled: 09/11/20 * Follow up:* annually * All * New Medication:* No Active Medications - Functional Status Functional Condition Comment Date Status .None Active Independent with all ADL's Activ e Independent with all IADL's Acti ve Mental Status Mental Condition Comment Date Status None Active Referrals Description No Information Available
[2020-11-28 17:54] VITALS: BP 118/74
[2020-11-29 06:14] VITALS: BP 103/52
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
--- NOTE | 2020-11-29 13:06 | HPEPDOC ---
[facility] Medical History & Physical Date of Admission Nov 29, 2020 Date of Service: Nov 29, 2020 History and Physical CHIEF COMPLAINT: suicidal ideation HISTORY OF PRESENT ILLNESS: 20-year-old female with a history of anxiety, depression and suicide attempt in 2016. She was admitted [facility] and discharged on 11/28/23 for an attempted suicide with Wellbutrin. Patient has been having issues with construction of her home as well as her marriage. She reports long-standing depression with suicidal ideation. Reportedly, she had a seizure while in the ED without any further witnessed episodes during the admission. She was transferred over to [facility] for psychiatric treatment due to suicidal ideation and suicidal attempt. PAST MEDICAL HISTORY: 1. Suicide attempt in 12/2016 with psych hospitalization at [facility] 2. Anxiety 3. Depression PAST SURGICAL HISTORY: 1. Tooth extraction SOCIAL HISTORY: Patient denies smoking Patient denies etoh use Patient denies illicit drug use FAMILY HISTORY: Father: Diabetes Mother: Thyroid disease ALLERGIES: Please see below. REVIEW OF SYSTEMS: 10 point ROS was completed and pertinent findings were noted in HPI HOME MEDICATIONS: Please see below. PHYSICAL EXAMINATION: VITAL SIGNS: please see below General: NAD, comfortable HEENT: PERRLA, EOMI, sclerae clear Neck: supple, normal ROM, no JVD Respiratory: lungs CTAB, no wheeze, no rales, no crackles CVS: RRR, normal S1, S2, no murmurs Abdo: soft, no masses, no hepatosplenomegaly, BS+, no rebound tenderness Extremities: no edema, pulses 2+ MSK: no joint deformities, normal ROM Neuro: no focal neuro deficits, moving all 4 extremities, CN2-12 intact. Strength 5/5 in all 4 extremities. No nystagmus. Psych: calm, cooperative, AAO x 3 LABORATORY DATA: See below. MICROBIOLOGY: Please see below. ASSESSMENT: 20-year-old female with history of anxiety, depression and suicidal attempts admitted to [facility] and discharged on 11/28 for Wellbutrin overdose. Patient transferred to [facility] for psychiatric treatment. Hospitalist consulted for medical comanagement. . PLAN: Suicidal ideation/suicidal attempt - was discharged from [facility] on 11/28/20 for wellbutrin overdose - now in [facility] for psychiatric care Seizure - per report, had seizure while in ER - no further episodes - monitor while admitted Subclinical hypothyroidism vs sick euthyroid syndrome - repeat TFTs in 4-6 weeks with PCP DVT ppx: early ambulation, SCDs. Thank you for involving me in the care of this patient. Please re-consult as needed. Vital Signs Vital Signs Date Time Temp Pulse Resp B/P (MAP) Pulse Ox O2 Delivery O2 Flow Rate FiO2 11/29/20 06:14 98.9 75 20 103/52 (69) 11/28/20 17:54 100 Room Air Home Medications No Active Prescriptions or Reported Meds Allergies Coded Allergies: Carrot (Unverified Allergy, Severe, ANAPHYLAXIS, 07/13/17) FRUIT (Verified Allergy, Severe, ALL RAW FRUIT, 07/13/17) Nut Tree (Unverified Allergy, Unknown, ANAPHYLAXIS, 07/13/17) latex (Verified Allergy, Unknown, 02/12/19) soy (Verified Allergy, Unknown, 02/12/19) CANDACE CLEMENTS MD Nov 29, 2020 13:06
[2020-11-29 16:03] VITALS: BP 122/70
[2020-11-30 06:36] VITALS: BP 98/51
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
== END 2020-11-30 15:00 | disposition home or self-care (01) | DRG 881 ==
LOC: M PSY 15:40
PROVIDERS: ADMIT Psychiatry & Neurology Psychiatry; ATTEND Psychiatry & Neurology Psychiatry
DX: F32.9 Major depressive disorder, single episode, unspecified (principal); F41.9 Anxiety disorder, unspecified; E02 Subclinical iodine-deficiency hypothyroidism; E07.81 Sick-euthyroid syndrome; Z91.5 Personal history of self-harm; Z63.5 Disruption of family by separation and divorce; Z91.018 Allergy to other foods; Z91.040 Latex allergy status

== ENCOUNTER → 2021-04-27 | Outpatient (CLI) | payer OTHER ==
[2021-04-27 13:56] LABS: HCG, SERUM QUALITATIVE NEGATIVE (NEGATIVE)
== END ==
LOC: M LAB 12:24
PROVIDERS: ATTEND Nurse Practitioner Family
DX: N91.1 Secondary amenorrhea (principal)

== ENCOUNTER → 2022-07-10 | Outpatient (REF) | payer OTHER ==
[2022-07-10 20:32] LABS: GC DNA AMPLIFICATION NEGATIVE (NEGATIVE)
== END ==
LOC: M LAB REF 16:08
PROVIDERS: ATTEND Pediatrics
DX: Z11.3 Encounter for screening for infections with a predominantly sexual mode of transmission (principal); A64 Unspecified sexually transmitted disease

== ENCOUNTER → 2022-10-23 | Outpatient (REF) | payer MEDICARE | LOC: M PLALAB 15:49 | PROVIDERS: ATTEND Advanced Practice Midwife | DX: Z53.9 Procedure and treatment not carried out, unspecified reason (principal) ==

== ENCOUNTER → 2022-10-23 | Outpatient (CLI) | payer OTHER ==
[2022-10-23 18:10] LABS: HEMATOCRIT 40.8 % (36.0-47.0); HEMOGLOBIN 13.4 g/dl (12.0-15.5); MEAN CORPUSCULAR HEMOGLOBIN 28.9 pg (27.0-33.0); MEAN CORPUSCULAR HGB CONC 32.8 g/dl (32.0-36.5); MEAN CORPUSCULAR VOLUME 87.9 fl (80.0-96.0); PLATELET COUNT, AUTOMATED 263 10^3/uL (150-450); RED BLOOD COUNT 4.64 10^6/uL (4.00-5.40)
[2022-10-23 19:12] LABS: HIV 1&2 SCREEN CENTAUR NEGATIVE (NEGATIVE)
[2022-10-23 19:20] LABS: HEPATITIS C VIRUS ABY INDEX 0.1 INDEX (<0.8)
[2022-10-23 21:07] LABS: GC DNA AMPLIFICATION NEGATIVE (NEGATIVE)
== END ==
LOC: M LAB 16:33
PROVIDERS: ATTEND Advanced Practice Midwife
DX: Z34.81 Encounter for supervision of other normal pregnancy, first trimester (principal)

== ENCOUNTER 2022-12-19 10:18 | Outpatient (CLI) | payer OTHER, MEDICARE ==
[~2022-12-19] VITALS: Ht 162.6 cm; Wt 59.4 kg
[2022-12-19] MEDS ORDERED: PRENTAB9 PO (10:32)
[2022-12-19 10:33] VITALS: BP 119/76
[2022-12-19] MEDS ORDERED: HOME MED LIST COMPLETE! XX SCH (13:15)
== END 2022-12-19 13:35 | disposition home or self-care (01) ==
LOC: M LDO 10:18
PROVIDERS: ATTEND Obstetrics & Gynecology
DX: O46.92 Antepartum hemorrhage, unspecified, second trimester (principal); Z3A.21 21 weeks gestation of pregnancy
CPT/HCPCS: 76815; G0463

== ENCOUNTER → 2022-12-25 | Outpatient (CLI) | payer OTHER | LOC: M WHC 14:02 | PROVIDERS: ATTEND Advanced Practice Midwife | DX: Z34.81 Encounter for supervision of other normal pregnancy, first trimester (principal) ==

== ENCOUNTER → 2023-02-12 | Outpatient (CLI) | payer OTHER | LOC: M WHC 07:32 | PROVIDERS: ATTEND Advanced Practice Midwife | DX: Z34.82 Encounter for supervision of other normal pregnancy, second trimester (principal); Z3A.30 30 weeks gestation of pregnancy ==

== ENCOUNTER → 2023-02-13 | Outpatient (CLI) | payer OTHER ==
[~2023-02-13] MED LIST changes: -CLON-383 PO; +CLON-442 PO
[2023-02-13 11:35] LABS: HEMATOCRIT 36.2 % (36.0-47.0); HEMOGLOBIN 11.4 g/dl (12.0-15.5); MEAN CORPUSCULAR HEMOGLOBIN 29.2 pg (27.0-33.0); MEAN CORPUSCULAR HGB CONC 31.5 g/dl (32.0-36.5); MEAN CORPUSCULAR VOLUME 92.6 fl (80.0-96.0); PLATELET COUNT, AUTOMATED 229 10^3/uL (150-450); RED BLOOD COUNT 3.91 10^6/uL (4.00-5.40); WHITE BLOOD COUNT 12.7 10^3/uL (4.0-10.0)
[2023-02-13 13:21] LABS: GC DNA AMPLIFICATION NEGATIVE (NEGATIVE)
== END ==
LOC: M PLALAB 08:03
PROVIDERS: ATTEND Advanced Practice Midwife
DX: Z34.83 Encounter for supervision of other normal pregnancy, third trimester (principal); Z3A.29 29 weeks gestation of pregnancy; Z23 Encounter for immunization
CPT/HCPCS: 36415; 82950; 85027; 86850; 86900; 86901; 87810; 87850; 90471; 90715; G0463

== ENCOUNTER → 2023-03-11 | Outpatient (CLI) | payer OTHER ==
[~2023-03-11] MED LIST changes: +CLON-383 PO; -CLON-442 PO
[2023-03-11 14:34] LABS: URIC ACID 3.3 MG/DL (3.1-7.8)
[2023-03-11 14:37] LABS: ALBUMIN 2.7 G/DL (3.2-5.2); ALKALINE PHOSPHATASE 107 U/L (46-116); ALT/SGPT 12 U/L (7.0-40); AST/SGOT 14 U/L (<34); BILIRUBIN,DIRECT < 0.1 MG/DL (<0.4); BILIRUBIN,TOTAL 0.3 MG/DL (0.3-1.2); TOTAL PROTEIN 5.9 G/DL (5.7-8.2)
== END ==
LOC: M PLALAB 11:43
PROVIDERS: ATTEND Advanced Practice Midwife
DX: L29.9 Pruritus, unspecified (principal)
CPT/HCPCS: 36415; 80076; 82239; 84550; G0463

== ENCOUNTER → 2023-03-25 | Outpatient (REF) | payer OTHER ==
[~2023-03-25] MED LIST changes: -CLON-383 PO; +CLON-442 PO
== END ==
LOC: M SFHCWAGY 13:09
PROVIDERS: ATTEND Advanced Practice Midwife
DX: Z36.85 Encounter for antenatal screening for Streptococcus B (principal)

== ENCOUNTER 2023-04-23 19:08 | Inpatient (IN) | payer OTHER ==
[~2023-04-23] VITALS: Ht 162.6 cm; Wt 73.0 kg
[2023-04-23 19:36] VITALS: BP 135/86
[2023-04-23 20:21] LABS: HEMATOCRIT 35.4 % (36.0-47.0); HEMOGLOBIN 11.3 g/dl (12.0-15.5); MEAN CORPUSCULAR HEMOGLOBIN 26.7 pg (27.0-33.0); MEAN CORPUSCULAR HGB CONC 31.9 g/dl (32.0-36.5); MEAN CORPUSCULAR VOLUME 83.5 fl (80.0-96.0); PLATELET COUNT, AUTOMATED 326 10^3/uL (150-450); RED BLOOD COUNT 4.24 10^6/uL (4.00-5.40); WHITE BLOOD COUNT 12.8 10^3/uL (4.0-10.0)
[2023-04-23] MEDS ORDERED: PENICILLIN G POTASSIUM 5 MU IV 5 MU in D5W MINI-BAG PLUS 100 ML IV STA (20:33)
[2023-04-23] MEDS ORDERED: miSOPROStol 50MCG 1/2 TABLET PO ONE (20:35)
[2023-04-23] MEDS ORDERED: OXYTOCIN INJ 10UNITS/ML 1ML VIAL IM PRN (20:35)
[2023-04-23] MEDS ORDERED: LIDOCAINE 1% MDV 20ML VIAL INFIL PRN (20:35)
[2023-04-23] MEDS ORDERED: OXYTOCIN DRIP 30 UNITS in IV 1 EA IV PRN ×4 (20:35)
[2023-04-23] MEDS ORDERED: CARBOPROST TROMETHAMINE 250 MCG/ML AMP IM PRN (20:35)
[2023-04-23] MEDS ORDERED: TRANEXAMIC ACID INJection 1,000 MG in NS 100 ML IV PRN (20:35)
[2023-04-23] MEDS ORDERED: METHYLERGONOVINE MALEATE 0.2MG/ML 1ML VIAL IM PRN (20:35)
[2023-04-23] MEDS ORDERED: OXYTOCIN DRIP 30 UNITS in IV 1 EA IV SCH (22:10)
[2023-04-24] VITALS (53 sets, daily range): BP systolic 99–152; BP diastolic 55–116; O2SAT 94
[2023-04-24] MEDS: LR 1,000 ML IV SCH ×3 (00:57→21:34)
[2023-04-24] MEDS: PEN G POT 3,000,000 UNIT/50 ML 3,000,000 UNIT in IV 1 EA IV SCH ×4 (03:57→16:15)
[2023-04-24] MEDS ORDERED: EPIDURAL/PCA KEYS XX PRN (07:25)
[2023-04-24] MEDS ORDERED: LR 500 ML IV PRN (07:25)
[2023-04-24] MEDS ORDERED: diphenhydrAMINE 50MG/ML VIAL IV PRN (07:25)
[2023-04-24] MEDS ORDERED: ONDANSETRON 4MG 2ML VIAL IV PRN (07:25)
[2023-04-24] MEDS ORDERED: FENTANYL/ROPIVACAINE/NACL BAG 100 ML EPIDURAL SCH (07:25)
[2023-04-24] MEDS ORDERED: NALOXONE INJ 0.4MG/1ML VIAL IV PRN (07:25)
[2023-04-24] MEDS ORDERED: ePHEDrine SULFATE 25 MG/5 ML(5MG/ML) SYRINGE IVP PRN (07:25)
[2023-04-24] MEDS ORDERED: ACETAMINOPHEN TAB 650MG DOSE (2X325MG) PO PRN (22:55)
[2023-04-24] MEDS ORDERED: IBUPROFEN 600MG TAB PO PRN (22:55)
[2023-04-25] MEDS ORDERED: DIBUCAINE 1% OINTMENT 30GM TOP PRN (01:25)
[2023-04-25] MEDS ORDERED: MOM 30ML SUSPENSION UDC PO PRN (01:25)
[2023-04-25] MEDS ORDERED: IBUPROFEN 800 MG TAB PO PRN (01:25)
[2023-04-25] MEDS ORDERED: ACETAMINOPHEN TAB 650MG DOSE (2X325MG) PO PRN (01:25)
[2023-04-25] MEDS ORDERED: RHOGAM 300MCG (1500IU) INJ IM SCH (01:25)
[2023-04-25] MEDS ORDERED: METHYLERGONOVINE MALEATE 0.2 MG TAB PO PRN (01:25)
[2023-04-25] MEDS ORDERED: ACETAMINOPHEN 500 MG TAB PO PRN (04:00)
[2023-04-25 06:00] VITALS: BP 120/69; O2SAT 99
[2023-04-25] MEDS: DOCUSATE SODIUM 100MG CAPSULE PO PRN ×2 (08:42→22:58)
[2023-04-25] MEDS: PRENATAL VITAMINS CHEWABLE TABLET PO SCH ×2 (08:42→08:46)
[2023-04-25 18:00] VITALS: BP 124/78; O2SAT 97
[2023-04-26 06:00] VITALS: BP 125/68; O2SAT 98
[2023-04-26] MEDS: PRENATAL VITAMINS CHEWABLE TABLET PO SCH (09:53)
[2023-04-27] MEDS ORDERED: MEASLES,MUMPS,RUBELLA VACCINE INJ (MMR-II) SC.IMMUN ONE (09:00)
== END 2023-04-26 13:23 | disposition home or self-care (01) | DRG 807 ==
LOC: M LDI 19:08 → M OBS 04-24 20:30
PROVIDERS: ADMIT Advanced Practice Midwife; ATTEND Obstetrics & Gynecology
PROC: 3E033VJ Introduction of Other Hormone into Peripheral Vein, Percutaneous Approach (ICD-10-PCS; 2023-04-23)
PROC: 10E0XZZ Delivery of Products of Conception, External Approach (ICD-10-PCS; principal; 2023-04-24)
DX: O99.344 Other mental disorders complicating childbirth (principal); Z37.0 Single live birth; F29 Unspecified psychosis not due to a substance or known physiological condition; O99.824 Streptococcus B carrier state complicating childbirth; Z79.899 Other long term (current) drug therapy; Z3A.39 39 weeks gestation of pregnancy